=== PATIENT | female | born 1955 | race Caucasian/White ===

== ENCOUNTER 2022-04-12 00:31 | Inpatient (IN) | payer MEDICARE, OTHER ==
[~2022-04-12] VITALS: Ht 165.1 cm; Wt 71.2 kg
--- NOTE | 2022-04-12 01:00 | NUR ---
PT BIB SON FOR C/O SOB. RAN OUT OF INHALER. PT A/O X 4, TAKEN TO ER BED 05, RT PAGED. PT CONNECTED TO CARDIAC AND POX MONITOR. WILL CONTINUE TO MONITOR.
--- NOTE | 2022-04-12 01:14 | NUR ---
RT PAGED FOR BREATHING TX
[2022-04-12] MEDS ORDERED: Magnesium 1GM/D5W 100ML PREMIX 200 ML IV ONE ×2 (01:21→01:30)
[2022-04-12] MEDS ORDERED: methylPREDNISolone SOD SUCC 125 MG/2ML VIAL ONE (01:21)
[2022-04-12] MEDS ORDERED: IPRATROPIUM NEB FS 0.5 MG/2.5 ML AMPUL.NEB ONE ×2 (01:26→07:48)
[2022-04-12] MEDS ORDERED: ALBUTEROL FS 2.5 MG/3 ML VIAL.NEB ONE ×2 (01:26→07:48)
[2022-04-12] MEDS ORDERED: ALBUTEROL FS 2.5 MG/3 ML VIAL.NEB NEB ONE (01:30)
[2022-04-12] MEDS ORDERED: methylPREDNISolone SOD SUCC 125 MG/2ML VIAL IV ONE (01:30)
[2022-04-12] MEDS ORDERED: IPRATROPIUM NEB FS 0.5 MG/2.5 ML AMPUL.NEB NEB ONE (01:30)
[2022-04-12] MEDS ORDERED: ACETAMINOPHEN ES 500 MG TABLET ONE (03:50)
[2022-04-12] MEDS ORDERED: ACETAMINOPHEN ES 500 MG TABLET PO ONE (04:00)
--- NOTE | 2022-04-12 04:18 | NUR ---
EPIC PAGED PER DR MCKENIZE.
[2022-04-12] MEDS ORDERED: Z GUARD REMEDY 4 OZ OINT TP PRN (04:30)
[2022-04-12] MEDS ORDERED: ONDANSETRON HCL/PF 4 MG/2 ML VIAL IVP PRN (04:30)
--- NOTE | 2022-04-12 05:18 | NUR ---
TERMITE RENEWAL INSPECTOR AT BEDSIDE FOR LAB DRAW
[2022-04-12 06:34] LABS: BASOPHILS % (AUTO) 0.3 % (0.0-2.0); EOSINOPHILS % (AUTO) 0.3 % (0.0-6.0); HEMATOCRIT 40 % (33-45); LYMPHOCYTES # (AUTO) 0.3 K/uL (0.8-4.8); LYMPHOCYTES % (AUTO) 4.5 % (20.0-44.0); MEAN CORPUSCULAR HGB CONC 33 g/dl (31.0-36.0); MEAN CORPUSCULAR VOLUME 87 fL (82-100); MONOCYTES # (AUTO) 0.1 K/uL (0.1-1.30); MONOCYTES % (AUTO) 1.2 % (2.0-12.0); NEUTROPHILS # (AUTO) 5.8 K/uL (1.8-8.9); NEUTROPHILS % (AUTO) 93.7 % (43.0-81.0); PLATELET COUNT (AUTO) 166 K/uL (150-450); RED BLOOD CELL COUNT(AUTO) 4.54 MIL/uL (4.0-5.2); WHITE BLOOD COUNT (AUTO) 6.2 K/uL (4.3-11.0)
[2022-04-12 06:50] LABS: ALBUMIN 3.8 g/dL (3.4-5.0); BILIRUBIN,TOTAL 0.4 mg/dL (0.2-1.0); CALCIUM, SERUM 8.7 mg/dL (8.5-10.1); CREATININE 0.8 mg/dL (0.6-1.3); MAGNESIUM 2.6 mg/dL (1.8-2.4); POTASSIUM 3.7 mmol/L (3.5-5.1); TOTAL PROTEIN, SERUM 6.9 g/dL (6.4-8.2)
--- NOTE | 2022-04-12 07:30 | NUR ---
ASSESSED PT ON BED AAOX4, NOT IN RESPIRATORY DISTRESS, V/S STABLE, KEPT RESTED AND COMFORTABLE. WILL CONTINUE TO MONITOR.
--- NOTE | 2022-04-12 07:38 | NUR ---
CALLED RT FOR BREATHING TX.
[2022-04-12] MEDS: ALBUTEROL FS 2.5 MG/3 ML VIAL.NEB NEB SCH ×2 (07:42→07:51)
[2022-04-12] MEDS: IPRATROPIUM NEB FS 0.5 MG/2.5 ML AMPUL.NEB NEB SCH ×2 (07:42→07:51)
[2022-04-12] MEDS ORDERED: PANTOPRAZOLE 40 MG TABLET.DR PO ONE (07:49)
[2022-04-12] MEDS: PANTOPRAZOLE 40 MG TABLET.DR PO SCH (07:50)
[2022-04-12] MEDS ORDERED: BUDE10.2 PO (08:05)
[2022-04-12] MEDS ORDERED: LOSA1TAB39 PO (08:05)
[2022-04-12] MEDS ORDERED: ALBU18HF2 PO (08:05)
[2022-04-12] MEDS ORDERED: OMEP40CA21 PO (08:05)
[2022-04-12] MEDS ORDERED: ATOR10TA PO (08:05)
[2022-04-12] MEDS ORDERED: methylPREDNISolone SOD SUCC 40 MG/ML VIAL ONE (08:41)
[2022-04-12] MEDS: methylPREDNISolone SOD SUCC 40 MG/ML VIAL IV SCH ×2 (08:57→16:18)
[2022-04-12] MEDS ORDERED: DOXYCYCLINE HYCLATE (100 MG) 100 MG TABLET ONE (09:10)
[2022-04-12] MEDS: DOXYCYCLINE HYCLATE (100 MG) 100 MG TABLET PO SCH ×2 (09:10→16:18)
--- NOTE | 2022-04-12 09:24 | NUR ---
GOT BED 105
--- NOTE | 2022-04-12 09:28 | NUR ---
REPORT GIVEN TO JULIAN TOURE FOR RICKY.
--- NOTE | 2022-04-12 11:00 | NUR ---
ms rn received a new admission from er, patient is awake,alert,oriented x4,not in any form of distress, respirations even and unlabored,no sob noted,came in w/ chf exacerbation, no sob noted, denies pain at this time, will monitor patient.
[2022-04-12] MEDS: ACETAMINOPHEN 325 MG TABLET PO PRN ×2 (11:26→16:19)
[2022-04-12] MEDS: ENOXAPARIN SODIUM 40 MG/0.4 ML DISP.SYRIN SQ SCH (11:27)
--- NOTE | 2022-04-12 15:00 | NUR ---
ms rn due meds given,tolerated well.
[2022-04-12 18:17] VITALS: BP 141/91
--- NOTE | 2022-04-12 18:20 | NUR ---
ms rn on bed, no distress noted.
--- NOTE | 2022-04-12 19:45 | NUR ---
RN NOTE RECEIVED PT IN BED, AOX4. NOT IN ANY DISTRESS. ON O2 AT 3L. DENIES ANY SOB. IV ON RAC PATENT AND INTACT. WILL CONTINUE TO MONITOR.
[2022-04-12 20:00] VITALS: BP 141/82
[2022-04-13] MEDS: methylPREDNISolone SOD SUCC 40 MG/ML VIAL IV SCH ×3 (00:52→17:56)
[2022-04-13 04:00] VITALS: BP 150/79
[2022-04-13 06:10] LABS: CALCIUM, SERUM 9.6 mg/dL (8.5-10.1); CREATININE 0.8 mg/dL (0.6-1.3); MAGNESIUM 2.2 mg/dL (1.8-2.4); POTASSIUM 4.3 mmol/L (3.5-5.1)
[2022-04-13 06:33] LABS: HEMATOCRIT 43 % (33-45); HEMOGLOBIN 13.8 g/dL (11.5-14.8); LYMPHOCYTES # (AUTO) 0.6 K/uL (0.8-4.8); LYMPHOCYTES % (AUTO) 3.7 % (20.0-44.0); MEAN CORPUSCULAR HGB CONC 33 g/dl (31.0-36.0); MEAN CORPUSCULAR VOLUME 87 fL (82-100); MONOCYTES # (AUTO) 0.4 K/uL (0.1-1.30); MONOCYTES % (AUTO) 2.4 % (2.0-12.0); NEUTROPHILS # (AUTO) 14.3 K/uL (1.8-8.9); NEUTROPHILS % (AUTO) 93.9 % (43.0-81.0); PLATELET COUNT (AUTO) 205 K/uL (150-450); RED BLOOD CELL COUNT(AUTO) 4.91 MIL/uL (4.0-5.2); WHITE BLOOD COUNT (AUTO) 15.2 K/uL (4.3-11.0)
--- NOTE | 2022-04-13 06:36 | NUR ---
RN NOTE PT TOLERATES O2 AT 3L. NO CHANGES IN LOC. DENIES ANY SOB OR PAIN AT THIS TIME, NOT S/SX OF DISTRESS. PT AMBULATORY, ABLE TO MAKE NEEDS KNOWN. WILL ENDORSE TO NEXT SHIFT NURSE FOR RICKY.
--- NOTE | 2022-04-13 07:00 | NUR ---
RN OPENING NOTES: RECEIVED PT IN BED AWAKE ALERT AND ORIENTED X 4, RESPIRATION IS EVEN AND UNLABORED, DENIED ANY SOB AT THIS TIME, ON ROOM AIR,RAC GAUGE 18 PATENT, INTACT AND FLUSHED WELL, BED IN LOW AND LOCKED POSITION,WILL MONITOR PT
[2022-04-13 08:00] VITALS: BP 170/100
[2022-04-13] MEDS: DOXYCYCLINE HYCLATE (100 MG) 100 MG TABLET PO SCH ×2 (08:13→17:55)
[2022-04-13] MEDS: PANTOPRAZOLE 40 MG TABLET.DR PO SCH (08:13)
[2022-04-13] MEDS: ENOXAPARIN SODIUM 40 MG/0.4 ML DISP.SYRIN SQ SCH (08:15)
[2022-04-13] MEDS ORDERED: CLONIDINE HCL 0.1 MG TABLET PO PRN (08:30)
[2022-04-13] MEDS ORDERED: Medication Not On Formulary EA (Budesonide/Formoterol Fumarate (Symbicort 160-4.5 Mcg In PO SCH (09:00)
[2022-04-13] MEDS ORDERED: Medication Not On Formulary EA (Omeprazole 40 MG) PO SCH (09:00)
[2022-04-13] MEDS ORDERED: Medication Not On Formulary EA (Losartan/Hydrochlorothiazide (Losartan-Hctz 100-25 Mg Ta PO SCH (09:00)
[2022-04-13] MEDS ORDERED: ALBUTEROL SULFATE 8 GM HFA.AER.AD IH SCH (09:00)
[2022-04-13] MEDS: LOSARTAN/HCTZ 50-12.5MG/ 1 EA TABLET PO SCH (09:11)
[2022-04-13] MEDS: ACETAMINOPHEN 325 MG TABLET PO PRN (09:20)
[2022-04-13] MEDS: IPRATROPIUM NEB FS 0.5 MG/2.5 ML AMPUL.NEB NEB SCH ×2 (13:51→19:55)
[2022-04-13] MEDS: ALBUTEROL FS 2.5 MG/3 ML VIAL.NEB NEB SCH ×2 (13:51→19:56)
[2022-04-13 16:00] VITALS: BP 142/76
--- NOTE | 2022-04-13 17:17 | NUR ---
PATIENT RECEIVED ON 3LNC SATURATIONS AT 99% Q6 HHN TX TOLERATING WELL WITH NO ADVERSE REACTION NOTED.
--- NOTE | 2022-04-13 19:15 | NUR ---
RN NOTE RECEIVED PATIENT IN BED, AO X 4, IN NO ACUTE DISTRESS AT THIS TIME. RESPIRATIONS UNLABORED, SATURATION AT 95% ON 3L VIA NC, HR IS 76. IV LINE AT R AC 18G, PATENT AND FLUSHING WELL, NO S/S OF INFECTION OR INFILTRATION, SALINE LOCKED. PATIENT IS AMBULATORY WITH STEADY GAIT. SAFETY MEASURES IMPLEMENTED. HEAD OF BED ELEVATED. BED IS LOCKED, IN LOWEST POSITION AND SIDE RAILS UP. CALL LIGHT WITHIN REACH OF THE PATIENT. WILL CONTINUE TO MONITOR AND REASSESS FOR ANY CHANGES. Addendum: 04/14/22 at 0418 by ALEXUS PEREZ RN ERRATUM: IV LINE AT R AC 20G
--- NOTE | 2022-04-13 19:31 | NUR ---
RN CLOSING NOTES: PT IN BED AWAKE, ALERT AND ORIENTED X 4,PT TOLERATES O2 AT 3L. NO CHANGES IN LOC. DENIES ANY SOB OR PAIN AT THIS TIME, NOT S/SX OF DISTRESS. PT AMBULATORY, ABLE TO MAKE NEEDS KNOWN. VERBALIZED SHE FEELS BETTER AFTER BREATHING TREATMENT.WILL ENDORSE TO NEXT SHIFT NURSE FOR RICKY.
[2022-04-13 20:00] VITALS: BP 125/56
[2022-04-13] MEDS: ATORVASTATIN 10 MG TABLET PO SCH (21:54)
[2022-04-13] MEDS ORDERED: ATORVASTATIN 10 MG TABLET PO SCH (22:00)
[2022-04-14] VITALS: BP 142/76
[2022-04-14] MEDS: methylPREDNISolone SOD SUCC 40 MG/ML VIAL IV SCH ×3 (00:51→21:19)
[2022-04-14] MEDS: IPRATROPIUM NEB FS 0.5 MG/2.5 ML AMPUL.NEB NEB SCH ×4 (01:37→20:02)
[2022-04-14] MEDS: ALBUTEROL FS 2.5 MG/3 ML VIAL.NEB NEB SCH ×4 (01:37→20:02)
[2022-04-14 04:00] VITALS: BP 115/71
[2022-04-14 07:10] LABS: BASOPHILS % (AUTO) 0.1 % (0.0-2.0); HEMATOCRIT 40 % (33-45); HEMOGLOBIN 13.1 g/dL (11.5-14.8); LYMPHOCYTES # (AUTO) 0.5 K/uL (0.8-4.8); LYMPHOCYTES % (AUTO) 3.6 % (20.0-44.0); MEAN CORPUSCULAR HGB CONC 33 g/dl (31.0-36.0); MEAN CORPUSCULAR VOLUME 87 fL (82-100); MONOCYTES # (AUTO) 0.6 K/uL (0.1-1.30); NEUTROPHILS # (AUTO) 13.8 K/uL (1.8-8.9); NEUTROPHILS % (AUTO) 92.3 % (43.0-81.0); PLATELET COUNT (AUTO) 200 K/uL (150-450); RED BLOOD CELL COUNT(AUTO) 4.61 MIL/uL (4.0-5.2); WHITE BLOOD COUNT (AUTO) 14.9 K/uL (4.3-11.0)
--- NOTE | 2022-04-14 07:20 | NUR ---
RN OPENING NOTES RECEIVED PATIENT IN BED AWAKE, ALERT AND ORIENTED X4. ON RA TOLERATING WELL WITH NO SOB NOTED. DENIES PAIN AT THIS TIME. PT AMBULATORY, ABLE TO MAKE NEEDS KNOWN. SAFETY MEASURES IN PLACE. WILL CONTINUE TO MONITOR
[2022-04-14 07:23] LABS: CALCIUM, SERUM 10.1 mg/dL (8.5-10.1); CREATININE 0.8 mg/dL (0.6-1.3); POTASSIUM 3.7 mmol/L (3.5-5.1)
[2022-04-14 08:00] VITALS: BP 146/82
[2022-04-14] MEDS: ENOXAPARIN SODIUM 40 MG/0.4 ML DISP.SYRIN SQ SCH (09:30)
[2022-04-14] MEDS: PANTOPRAZOLE 40 MG TABLET.DR PO SCH (09:31)
[2022-04-14] MEDS: DOXYCYCLINE HYCLATE (100 MG) 100 MG TABLET PO SCH ×2 (09:31→17:36)
[2022-04-14] MEDS: LOSARTAN/HCTZ 50-12.5MG/ 1 EA TABLET PO SCH (10:57)
[2022-04-14 16:00] VITALS: BP 142/76
[2022-04-14] MEDS ORDERED: methylPREDNISolone SOD SUCC 40 MG/ML VIAL IV SCH (17:36)
--- NOTE | 2022-04-14 18:00 | NUR ---
RN NOTES PATIENT IS TOLERATING BREATHING TREATMENTS WELL, SAYS SHE FEELS BETTER AFTER THEM. COMFORTABLE ON RA. WILL CONTINUE TO MONITOR
--- NOTE | 2022-04-14 19:05 | NUR ---
RN OPENING NOTES RECEIVED PATIENT ON BED, ALERT AND VERBALLY RESPONSIVE. ON ROOM AIR SATING AT 94% RESPIRATORY EVEN AND UNLABORED, NO SOB NOTED, NOT IN ACUTE DISTRESS. REMAIN AFEBRILE. NOTED WITH RAC #20 IV LINE, PATENT, INTACT. FLUSHED WITH NS, NO S/S OF INFILTRATION NOTED AT SITE. ALL SAFETY MEASURE PROVIDED. BED IN LOWEST POSITION. CALL LIGHT WITH IN REACH. CONTINUE TO MONITOR.
--- NOTE | 2022-04-14 19:29 | NUR ---
RN CLOSING NOTES PATIENT COMFORTABLE IN BED. ALL ORDERS CARRIED OUT. NO COMPLAINT OF PAIN OF SOB ON RA. SAFETY MEASURES IN PLACE. ENDORSED TO THE PLUG GROWER NURSE FOR RICKY
[2022-04-14] MEDS: ATORVASTATIN 10 MG TABLET PO SCH (21:19)
[2022-04-15] VITALS: BP 138/90
[2022-04-15] MEDS: IPRATROPIUM NEB FS 0.5 MG/2.5 ML AMPUL.NEB NEB SCH ×3 (02:00→14:49)
[2022-04-15] MEDS: ALBUTEROL FS 2.5 MG/3 ML VIAL.NEB NEB SCH ×3 (02:00→14:49)
[2022-04-15] MEDS: methylPREDNISolone SOD SUCC 40 MG/ML VIAL IV SCH ×2 (05:20→12:13)
--- NOTE | 2022-04-15 07:10 | NUR ---
RN OPENING NOTES RECEIVED PATIENT IN BED, AWAKE, ALERT AND VERBALLY RESPONSIVE. ON ROOM AIR WITH SATURATION AT 93% BREATHING EVEN AND UNLABORED, NO SOB NOTED, NOT IN ACUTE DISTRESS. NOTED WITH RAC #20 IV LINE, PATENT, INTACT. FLUSHED WITH NS, NO S/S OF INFILTRATION NOTED AT SITE. ALL SAFETY MEASURE PROVIDED. BED IN LOWEST LOCKED POSITION WITH SIDERAILS UP X 2. CALL LIGHT WITH IN REACH. WILL CONTINUE TO MONITOR AND ASSESS PATIENT FOR ANY CHANGES DURING SHIFT.
--- NOTE | 2022-04-15 07:20 | NUR ---
RN NOTES PATIENT REMAIN STABLE THROUGH OUT THE SHIFT. RESPIRATORY EVEN AND UNLABORED, NO SOB NOTED, NOT IN ACUTE DISTRESS. REMAIN AFEBRILE. ALL DUE MEDS GIVEN ORDERED. . ALL SAFETY MEASURE PROVIDED. BED IN LOWEST POSITION. REPORT GIVEN TO MORNING SHIFT NURSE.
[2022-04-15 08:00] VITALS: BP 136/88
[2022-04-15] MEDS ORDERED: PRED50TA PO (08:15)
[2022-04-15] MEDS: ENOXAPARIN SODIUM 40 MG/0.4 ML DISP.SYRIN SQ SCH (08:41)
[2022-04-15] MEDS: LOSARTAN/HCTZ 50-12.5MG/ 1 EA TABLET PO SCH (08:41)
[2022-04-15] MEDS: DOXYCYCLINE HYCLATE (100 MG) 100 MG TABLET PO SCH ×2 (08:41→16:06)
[2022-04-15] MEDS: PANTOPRAZOLE 40 MG TABLET.DR PO SCH (08:41)
[2022-04-15] MEDS ORDERED: FLUT1BLS IH (08:43)
[2022-04-15] MEDS ORDERED: ALBU8.5H8 INH (08:43)
[2022-04-15] MEDS ORDERED: ALBUT2 NEB (08:43)
[2022-04-15 16:00] VITALS: BP 138/83
--- NOTE | 2022-04-15 17:39 | NUR ---
RN CLOSING NOTE PATIENT WAS DISCHARGED TO HOME. DISCHARGE INSTRUCTIONS AND BELONGINGS LIST SIGNED. ALL BELONGINGS ACCOUNTED FOR AND GIVEN TO PATIENT. PATIENT IS ALERT AND ORIENTED X 4. BREATHING EVENLY AND UNLABORED ON ROOM AIR TOLERATING WELL. NO SOB OR PAIN REPORTED. ALL DUE MEDS ADMINISTERED. PATIENT WAS KEPT DRY AND CLEAN WITH ALL NEEDS ANTICIPATED. IV ACCESS REMOVED WITH NO BLEEDING NOTED. PATIENT WHEELED OUT OF THE HOSPITAL PICKED UP BY HER IN A PRIVATE CAR IN STABLE CONDITION.
== END 2022-04-15 18:36 | disposition home or self-care (01) | DRG 189 ==
LOC: ER 00:33 → TRANSITION 07:00 → MEDSG1 09:29
PROVIDERS: ADMIT Internal Medicine; ATTEND Internal Medicine
DX: J96.01 Acute respiratory failure with hypoxia (principal); J44.1 Chronic obstructive pulmonary disease with (acute) exacerbation; Z20.822 Contact with and (suspected) exposure to COVID-19; I10 Essential (primary) hypertension; Z28.310 Unvaccinated for COVID-19; Z79.51 Long term (current) use of inhaled steroids; Z79.899 Other long term (current) drug therapy; E78.5 Hyperlipidemia, unspecified; Z87.891 Personal history of nicotine dependence
CPT/HCPCS: 36415; 70220-TC; 71045-TC; 80048-TC; 80053-TC; 83735-TC; 85025-TC; 87081-TC; 94799-TC; G0378; J1650; J2920; J2930; J3475